=== PATIENT | male | born 1975 | race Caucasian/White ===

== ENCOUNTER 2019-11-24 06:07 | Emergency (ER) | payer BC ==
[~2019-11-24] VITALS: Ht 182.9 cm; Wt 90.7 kg
--- NOTE | 2019-11-24 06:46 | NUR ---
ERMD AT BEDSIDE FOR HX AND PHYSICAL PT C/O 9/10 R FLANK PAIN, CONSTANT
[2019-11-24] MEDS ORDERED: IV NORMAL SALINE 1000 ML BAG IV ONE (07:00)
[2019-11-24] MEDS ORDERED: METOCLOPRAMIDE HCL 10 MG/2 ML VIAL IV ONE (07:00)
[2019-11-24] MEDS ORDERED: KETOROLAC TROMETHAMINE 15 MG INJ IVP ONE (07:00)
[2019-11-24] MEDS ORDERED: KETOROLAC TROMETHAMINE 15 MG INJ ONE (07:05)
[2019-11-24] MEDS ORDERED: METOCLOPRAMIDE HCL 10 MG/2 ML VIAL ONE (07:05)
--- NOTE | 2019-11-24 07:17 | NUR ---
WAITING FOR CT HI TEACHER CONSENT SIGNED HAND OFF AND SBAR GIVEN TO INCOMING DAY SHIFT RN
[2019-11-24] MEDS ORDERED: IV NORMAL SALINE 250 ML IV ONE (07:18)
[2019-11-24] MEDS ORDERED: SWABABLE VALVE TRANSFER SET EA MC ONE (07:18)
[2019-11-24] MEDS ORDERED: IOHEXOL 300MG/ML 100 ML INFUS..BTL ONE (07:18)
[2019-11-24 07:22] LABS: CREATININE 0.9 mg/dL (0.6-1.3); POTASSIUM 3.9 mmol/L (3.5-5.1)
[2019-11-24 07:28] LABS: BILIRUBIN,DIRECT 0.1 mg/dL (0.0-0.2); BILIRUBIN,TOTAL 0.6 mg/dL (0.2-1.0); TOTAL PROTEIN, SERUM 7.8 g/dL (6.4-8.2)
--- NOTE | 2019-11-24 07:30 | NUR ---
PATIENT IS AWAKE AND ALERT, STATES HE FEELS SOMEWHAT BETTER. AWAITING TEST RESULTS.
[2019-11-24 07:34] LABS: BASOPHILS % (AUTO) 0.6 % (0.0-2.0); EOSINOPHILS # (AUTO) 0.2 K/uL (0.0-0.7); EOSINOPHILS % (AUTO) 2.6 % (0.0-7.0); HEMOGLOBIN 17.1 g/dL (12.5-16.3); LYMPHOCYTES # (AUTO) 1.8 K/uL (20.0-40.0); LYMPHOCYTES % (AUTO) 26.1 % (20.5-51.5); MEAN CORPUSCULAR HGB CONC 36 g/dL (32.5-36.3); MONOCYTES # (AUTO) 0.7 K/uL (2.0-10.0); MONOCYTES % (AUTO) 9.7 % (0.0-11.0); NEUTROPHILS # (AUTO) 4.2 K/uL (1.8-8.9); PLATELET COUNT (AUTO) 209 K/uL (152-348); RED BLOOD CELL COUNT(AUTO) 5.52 MIL/uL (4.06-5.63); WHITE BLOOD COUNT (AUTO) 6.9 K/uL (3.6-10.2)
[2019-11-24 08:17] LABS: *BILIRUBIN,URIN NEGATIVE (NEGATIVE); *BLOOD, URINE 3+ (NEGATIVE); *CLARITY,URINE CLEAR (CLEAR); *COLOR,URINE YELLOW (YELLOW); *KETONES,URINE NEGATIVE (NEGATIVE); *UROBILINOGEN,URINE 0.2 E.U./dl (NORMAL); LEUKOCYTE ESTERASE ,URINE NEGATIVE (NEGATIVE); NITRITE, URINE NEGATIVE (NEGATIVE); PH,URINE 6.5 (5.0-8.0); UGLUCOSE NEGATIVE (NEGATIVE)
[2019-11-24 08:35] LABS: SQUAMOUS EPITHELIAL CELL,UR NONE SEEN /HPF (NONE SEEN)
[2019-11-24 08:36] LABS: BACTERIA,URINE NONE SEEN /HPF (NONE SEEN); RBC,URINE 50-80 /HPF (0-3); WBC,URINE 0-3 /HPF (0-3)
--- NOTE | 2019-11-24 09:03 | NUR ---
DR CASTRO AT BEDSIDE SPEAKING TO PATIENT ABOUT TEST RESULTS AND PLAN OF CARE
--- NOTE | 2019-11-24 09:17 | NUR ---
DC, RX (INCLUDING PRECAUTIONS) GIVEN AND EXPLAINED TO PATIENT WHO STATES HE UNDERSTANDS ALL INSTRUCTIONS.
--- NOTE | 2019-11-24 09:17 | NUR ---
IV removed. Catheter intact and site benign. Pressure and 4x4 gauze applied to site. No bleeding noted.
[2019-11-24 09:18] VITALS: BP 120/69
== END 2019-11-24 09:19 | disposition home or self-care (01) ==
LOC: ER 06:10
DX: N13.2 Hydronephrosis with renal and ureteral calculous obstruction (principal)
CPT/HCPCS: 36415; 71045; 74177; 80048; 80076; 81000; 81001; 83605; 83690; 84484; 85025; 85730; 87040 ×2; 87086; 93005; 96374; 96375; 99285; J1885; J2765; Q9967; 70030-TC; A4663; J7030; J7050

== ENCOUNTER 2022-09-22 04:58 | Emergency (ER) | payer BC ==
[~2022-09-22] VITALS: Ht 175.3 cm; Wt 88.5 kg
[~2022-09-22 04:58] MED LIST: SECU150P SQ
--- NOTE | 2022-09-22 05:16 | NUR ---
After being triaged, blood drawn and PCXR patient was placed back in the waiting room to wait for result due to no beds in the ER and two patient in the hallway.
[2022-09-22 05:44] LABS: HEMATOCRIT 46.1 % (36.7-47.1); MEAN CORPUSCULAR HEMOGLOBIN 30.4 uug (23.8-33.4); MEAN CORPUSCULAR VOLUME 87.2 fL (73.0-96.2); PLATELET COUNT (AUTO) 141 K/uL (152-348)
[2022-09-22 05:55] LABS: CARBON DIOXIDE 34 mmol/L (21-32); CHLORIDE 97 mmol/L (98-107); CREATININE 1.1 mg/dL (0.6-1.3); GLUCOSE 107 mg/dL (74-106); POTASSIUM 4.3 mmol/L (3.5-5.1); UREA NITROGEN, BLOOD 11 mg/dL (7-18)
[2022-09-22 06:01] LABS: BAND % (MANUAL) 2 % (0-10)
[2022-09-22 06:02] LABS: EOSINOPHILS % (MANUAL) 2 % (0-8); LYMPHOCYTES % (MANUAL) 20 % (20-40); MONOCYTES % (MANUAL) 12 % (2-10); NEUTROPHILS % (MANUAL) 64 % (42-75)
[2022-09-22] MEDS ORDERED: BENZ-13 PO (06:46)
--- NOTE | 2022-09-22 06:51 | NUR ---
Patient discharged to home in stable condition. Written and verbal after care instructions given. Patient verbalizes understanding of instructions. Stressed follow up or return to ER for worsening s/s.
[2022-09-22 06:53] VITALS: BP 128/75
== END 2022-09-22 06:53 | disposition home or self-care (01) ==
LOC: ER 05:05
DX: J06.9 Acute upper respiratory infection, unspecified (principal); Z20.822 Contact with and (suspected) exposure to COVID-19
CPT/HCPCS: 36415; 70030-TC; 71045; 84484; 85025; 87400; 93005; A4663